=== PATIENT | male | born 1960 | race Two or more races ===

== ENCOUNTER 2023-03-31 13:24 | Emergency (ER) | payer OTHER ==
[~2023-03-31] VITALS: Ht 188 cm; Wt 111.1 kg
[2023-03-31] MEDS ORDERED: cloNIDine HCL 0.1 MG TAB PO ONE (13:45)
[2023-03-31] MEDS ORDERED: ONDANSETRON ODT 4 MG TAB PO ONE (15:00)
[2023-03-31] MEDS ORDERED: MORPHINE SULFATE INJ 2 MG/ml SYRG IM ONE ×2 (15:00→17:15)
[2023-03-31] MEDS ORDERED: HYDR1TAB97 PO (17:12)
[2023-03-31] MEDS ORDERED: AMOX500T3 PO (17:12)
[2023-03-31 17:34] VITALS: BP 167/84
== END 2023-03-31 17:47 | disposition home or self-care (01) ==
LOC: ER 13:24
DX: K08.89 Other specified disorders of teeth and supporting structures (principal)
CPT/HCPCS: 96372; 99285; J2270; Q0162